=== PATIENT | female | born 1980 | race Two or more races ===

== ENCOUNTER 2019-04-23 07:51 | Outpatient (CLI) | payer OTHER ==
[~2019-04-23] VITALS: Ht 165.1 cm; Wt 65.8 kg
== END 2019-04-23 08:20 | disposition home or self-care (01) ==
LOC: OFIC 805 07:51
DX: J31.0 Chronic rhinitis (principal); R49.1 Aphonia; R49.0 Dysphonia; H61.23 Impacted cerumen, bilateral

== ENCOUNTER 2022-05-17 12:15 | Inpatient (IN) | payer OTHER ==
[~2022-05-17] VITALS: Ht 165.1 cm; Wt 67.1 kg
[2022-05-27] MEDS ORDERED: IBU800 MG PO (08:18)
[2022-05-27] MEDS ORDERED: NEURONTIN300 MG PO (08:19)
== END 2022-05-27 08:44 | disposition home or self-care (01) | DRG 743 ==
LOC: O/R 05-25 05:50 → OB/GYN 05-25 11:00
PROVIDERS: ADMIT Obstetrics & Gynecology Gynecology; ATTEND Obstetrics & Gynecology Gynecology
PROC: 0UT70ZZ Resection of Bilateral Fallopian Tubes, Open Approach (ICD-10-PCS; 2022-05-25)
PROC: 0UT90ZZ Resection of Uterus, Open Approach (ICD-10-PCS; principal; 2022-05-25 11:00)
DX: D25.1 Intramural leiomyoma of uterus (principal); D25.0 Submucous leiomyoma of uterus; D25.2 Subserosal leiomyoma of uterus; N72 Inflammatory disease of cervix uteri; N73.6 Female pelvic peritoneal adhesions (postinfective); Z20.822 Contact with and (suspected) exposure to COVID-19